=== PATIENT | female | born 1970 | race Caucasian/White ===

== ENCOUNTER → 2016-10-22 | Outpatient (CLI) | payer OTHER ==
[~2016-10-22] MED LIST: ADVAIR 2501 DISK W/D PO; ALBUTEROL 0.5ML INH; ALBUTEROL17 GM INH; HYCODAN PO; KEFLEX500 MG PO; LORTAB 2.5/5001 TAB PO; NO MEDICATIONS; TUSSIONEX PENN473 ML PO; VICODIN 5/1 TAB 5/50 PO; ZITHROMAX PO
--- NOTE | ~2016-10-22 | CT57 ---
[facility] A Service [facility] RADIOLOGY TEXT RESULTS PATIENT: CHIQUITA SHARP LOCATION: [facility] : 68 UNIT #: [id number] AGE: [address]: Jaime Singh MD SEX: F ORDER DR: [id number] [address] [address] [id number] O MR#: [id number] Acc #: [id number] NAME: CHIQUITA SHARP : 1970 SEX: F STUDY DATE/TIME: 10/22/2016 13:32 UNIT: CCAT ROOM: STUDY DESCRIPTION: CT Chest Wo Cont Attending Physician: Jaime Singh M.D. Referring Physician: Jaime Singh M.D. Ordering Physician: Jaime Singh M.D. Primary Care Physician: Jaime Singh M.D. MEDICAL IMAGING REPORT This report is preliminary unless electronic signature is present EXAM CT chest without contrast. DATE OF EXAM 10/22/2016 INDICATIONS Left lung nodule. Follow up pulmonary nodule. Previous history of lung cancer. PROCEDURE Unenhanced CT of the chest. COMPARISON 05/05/2016 TECHNIQUE NOTE: This CT exam was performed with one or more of the following radiation dose reduction techniques: automatic exposure control, adjustment of mA and/or kV according to patient size, and iterative reconstruction. FINDINGS 3 mm nodule medial left lower lobe is stable. 5 mm nodule anterior left lower lobe stable. No new nodules. Previous right pneumonectomy with expected volume loss in the right hemithorax with shift of the heart and mediastinal structures to the right. No acute findings in the included upper abdomen. Uncomplicated cholelithiasis. No aggressive-appearing bone lesion. IMPRESSION [facility] A Service of [facility] RADIOLOGY TEXT RESULTS PATIENT: CHIQUITA SHARP LOCATION: [facility] : 68 UNIT #: [id number] AGE: [address]: Jaime Singh MD SEX: F ORDER DR: 1. 2 nodules in the left lower lobe are stable. Recommend continued attention on follow-up to document 2 years of stability. 6-month follow up is suggested. 2. Previous right pneumonectomy. No evidence for new or enlarging adenopathy in the chest. Dictated by... Chema Caldwell M.D. THIS IS AN ELECTRONICALLY VERIFIED REPORT Chema Caldwell M.D. at 10/26/2016 7:02 AM MARTINEZ/taylor TD: 10/22/2016 23:32 JOB #: [id number] MEDICAL IMAGING REPORT COPY
--- NOTE | ~2016-10-22 | US128 ---
[id number] [facility]. [place], [place] [address] [id number] O MR#: [id number] [facility] #: [id number] NAME: CHIQUITA SHARP : 1970 SEX: F STUDY DATE/TIME: 10/22/2016 13:45 UNIT: CCAT ROOM: STUDY DESCRIPTION: Thyroid Attending Physician: Jaime Singh M.D. Referring Physician: Jaime Singh M.D. Ordering Physician: Jaime Singh M.D. Primary Care Physician: Jaime Singh M.D. MEDICAL IMAGING REPORT This report is preliminary unless electronic signature is present EXAM Ultrasound of the thyroid gland INDICATION Neck fullness for months as well as fatigue. Patient has a history of a prior thyroid nodule. TECHNIQUE Hernadez-scale and color Doppler sonographic images were obtained through the thyroid gland. FINDINGS Right lobe of thyroid gland measures 5.3 x 2.1 x 1.9 cm. Left lobe measures 5.2 x 1.8 x 1.6 cm and isthmus measures about 3 mm in thickness. Overall thyroid parenchyma is relatively homogeneous. Patient does have a 6 x 4 x 3 mm probable cyst within the right lobe of the thyroid gland. This was not clearly seen on the prior examination but again is favored to represent a cyst. No nodules are seen on the left. IMPRESSION 1. Thyromegaly. 2. Tiny 6 x 4 x 3 mm nodule within the right lobe of the thyroid gland which may actually reflect a cyst Dictated by... Jessika Hansen M.D. THIS IS AN ELECTRONICALLY VERIFIED REPORT Jessika Hansen M.D. at 10/28/2016 1:16 PM AFF/rnr TD: 10/23/2016 01:57 JOB #: [id number] MEDICAL IMAGING REPORT COPY
== END | disposition home or self-care (01) ==
LOC: CCAT 13:04
DX: R91.1 Solitary pulmonary nodule (principal); E01.0 Iodine-deficiency related diffuse (endemic) goiter; R91.8 Other nonspecific abnormal finding of lung field; E04.1 Nontoxic single thyroid nodule; Z90.2 Acquired absence of lung [part of]
CPT/HCPCS: 71250; 76536